=== PATIENT | male | born 1980 | race Caucasian/White ===

== ENCOUNTER 2017-03-23 15:50 | Inpatient (IN) ==
[2017-03-23] MEDS ORDERED: Piperacillin/Tazobactam 3.375 GM in D5% in Water (Mini-Bag+) 100 ML IVPB ONE (16:33)
[2017-03-23] MEDS ORDERED: Vancomycin 1,000 MG in D5% in Water 250 ML IVPB ONE (16:33)
--- NOTE | 2017-03-23 16:34 | Emergency Department Note ---
Disposition Clinical Impression: Puncture wound of plantar aspect of left foot Qualifiers: Encounter type: initial encounter Qualified Code(s): S91.332A - Puncture wound without foreign body, left foot, initial encounter Disposition: Admitted As Inpatient Condition: Good Referrals: NO,PCP [Primary Care Provider] - Forms: ED Satisfaction Letter Time of Disposition: 20:36 Skin/Abscess/FB HPI Chief complaint: ED Skin/Abscess/Foreign Body Stated complaint: L foot pain/swelling Time Seen by Provider: 03/23/17 16:21 Source: patient Mode of arrival: ambulatory Limitations: no limitations Nursing Notes Reviewed: Yes Vital Signs Reviewed: Yes HPI Narrative: 36-year-old male pack per day smoker and history of latent TB which was successfully treated presents with worsening left foot pain and swelling. Reports 3 days ago patient tripped and stepped on a rake that punctured his left foot. He was seen and evaluated in the ED. Patient was placed on outpatient antibiotics Augmentin and Levaquin and follow up with Dr. Sanon concrete block maker. Patient continues to have increased pain and swelling. Pain radiates up the leg. He denies any fevers at home. Denies any cough difficulty breathing, nausea or vomiting. Patient was given tetanus shot on prior evaluation. Previous Rx's Medication Instructions Recorded Amoxicillin/Clavulanate [Augmentin] 875 mg PO BIDWM #10 tablet 03/21/17 HYDROcodone/Acet 5/325 mg [[place]bler 1 - 2 tab PO Q6H PRN #10 tab 03/21/17 5-325 mg] Ibuprofen [Motrin] 600 mg PO Q8HR PRN #20 tab 03/21/17 Lactobacillus Combo No.10 1 each PO DAILY #30 capsule 03/21/17 [Probiotic] Levofloxacin [Levaquin] 750 mg PO DAILY #5 tablet 03/21/17 Allergies Allergy/AdvReac Type Severity Reaction Status Date / Time No Known Allergies Allergy Verified 03/21/17 16:17 All systems ED: reviewed and negative except as stated. Constitutional: Denies: fever, chills Cardiovascular: Denies: chest pain Respiratory: Denies: cough, dyspnea Gastrointestinal: Denies: abdominal pain, nausea, vomiting Genitourinary: Denies: urgency, dysuria Musculoskeletal: Reports: back pain, joint swelling, arthralgia Integumentary: Denies: rash, abrasion Neurological: Denies: headache Past Medical History - Past Medical History Attestation: Yes The following information was validated with the patient. Source: patient Medical history: Reports: hypertension, other Psychiatric history: Reports: no psych history - Social History Smoking Status: Current every day smoker Smokeless Tobacco Status: No Alcohol use: Reports: none Drug use: Reports: none Physical Exam - General Limitations: no limitations General appearance: alert, in distress (Appears uncomfortable and unable to place any pressure on his foot) - Chest Chest inspection: Present: normal inspection, symmetric chest wall rise - Respiratory Respiratory exam: Present: normal lung sounds bilaterally. Absent: respiratory distress, wheezes - Cardiovascular Cardiovascular exam: Present: regular rate, normal rhythm, normal heart sounds - Abdominal Exam Abdominal exam: Present: soft, Non-Tender, normal bowel sounds. Absent: tenderness, distention, guarding, rebound, rigidity - Expanded Lower Extremity Exam Lower leg exam: Present: other (soft compartment) Ankle exam: Present: swelling. Absent: crepitus Foot/toe exam: Present: tenderness, swelling, erythema, puncture wound (plantar aspect of left foot), other (Pain with passive range of motion to left foot). Absent: deformity, crepitus, dislocation, foreign body, tenderness at base of 5th metatarsal 1 - ERYTHEMA AND EDEMA 1 - ~2.0 cm laceration/puncture, no active bleeding Neurovascular/Tendon exam: Present: normal capillary refill. Absent: pulse deficit Gait: not tested/not observed, unable to bear weight - Neurological Exam Neurological exam: Present: alert, oriented X3 - Psychiatric Psychiatric exam: Present: normal affect, normal mood - Skin Skin exam: Present: warm, dry, intact, normal color, erythema (left foot dorsal and plantar) Course Course Narrative: 36-year-old male presents with left foot puncture wound. He has failed outpatient antibiotics. Increased swelling and erythema. Patient has pain with passive range of motion to the ankle and foot. Left lower leg compartment is soft and not tense. Good capillary refill. Neurovascularly intact. Tetanus was updated on Friday on initial evaluation. Will start on empiric antibiotics vancomycin and Zosyn. Morphine for pain here. Will repeat image his left foot. Patient will need admission and possible washout. - Reevaluation(s) Reevaluation #1: Patient remains afebrile with normal vital signs. His labs are unremarkable. X -ray of his left foot reveals resolution of gas in the soft tissue. Patient will need admission for washout. Impression left foot puncture wound to the midfoot. Time: 20:00 - Consultations Consultation #1: Spoke to Dr. Sanon podiatrists recommends edition of clindamycin to the vancomycin and Zosyn. Patient will be scheduled for a washout tomorrow. Recommend to admit to hospitalist. Time: 20:09 Consultation #2: Spoke with on-call hospitalist christian Mantilla to admit for left foot puncture wound of planter aspect. No further orders at this time Time: 20:36 Vital Signs Temperature 98.2 F 03/23/17 16:11 Pulse Rate 97 03/23/17 16:11 Respiratory Rate 18 03/23/17 16:11 Blood Pressure 138/90 03/23/17 16:11 O2 Sat by Pulse Oximetry 96 03/23/17 16:11 Temperature 98.2 F 03/23/17 16:11 Pulse Rate 96 03/23/17 19:40 Respiratory Rate 18 03/23/17 19:40 Blood Pressure 112/70 03/23/17 19:40 O2 Sat by Pulse Oximetry 95 03/23/17 19:40 Oxygen Delivery Oxygen Delivery Room Air Skin/Abscess/Foreign Body - Differential Diagnosis Likely: abscess of skin or subcutaneous tissue - Medical Records Medical records reviewed: Yes I reviewed the patient's medical records. - Lab Data Lab results reviewed: Yes I reviewed the patient's lab results. Result diagrams: 03/23/17 18:55 03/23/17 18:55 Lab Results 03/23/17 03/23/17 Range/Units 18:55 18:55 WBC 10.6 (4.3-11.1) K/mcL RBC 4.32 (4.19-5.50) M/mcL Hgb 13.4 (12.9-16.9) g/dL Hct 39.3 (37.5-50.1) % MCV 91.0 (83.0-100.0) fL MCH 31.0 (28.0-33.3) pg MCHC 34.1 (31.6-35.5) g/dL RDW 12.3 (11.5-14.5) % Plt Count 208 (140-400) K/mcL MPV 9.7 (9.4-12.4) fL Immature Gran % 0.5 (0-4) % Seg Neutrophils % 68.2 % Lymphocytes % 22.2 % Monocytes % 6.6 % Eosinophils % 2.2 % Basophils % 0.3 % Neutrophils # 7.2 (1.6-8.9) K/mcL Lymphocytes # 2.4 (0.6-4.6) K/mcL Monocytes # 0.7 (0.0-1.3) K/mcL Eosinophils # 0.2 (0.0-0.6) K/mcL Basophils # 0.0 (0.0-0.2) K/mcL Sodium 144 (136-145) mEq/L Potassium 3.8 (3.5-4.5) mEq/L Chloride 106 (98-109) mEq/L Carbon Dioxide 28 (19-29) mEq/L BUN 20 (8-26) mg/dL Creatinine 1.05 (0.72-1.25) mg/dL Est GFR ( Amer) > 60 (> 60) Est GFR (Non-Af Amer) > 60 (> 60) BUN/Creatinine Ratio 19 (6-26) Glucose 90 (70-99) mg/dL Calculated Osmolality 300 (280-300) Calcium 9.4 (8.6-10.8) mg/dL - Radiology Data Radiology results reviewed: Yes I reviewed the patient's radiology results. Foot X-Ray 03/23/17 16:33 IMPRESSION: No acute osseous abnormality of the left foot. Mild soft tissue swelling. Resolution of soft tissue gas and no radiopaque foreign body. D/ / Richar Rice MD / Richar Rice MD Interpreting Provider: Richar Rice MD
[2017-03-23] MEDS ORDERED: *HR* Morphine 2 MG/ML SYRINGE IVP ONE (18:47)
[2017-03-23 19:01] LABS: Basophils % 0.3 %; Eosinophils # 0.2 K/mcL (0.0-0.6); Eosinophils % 2.2 %; Hematocrit 39.3 % (37.5-50.1); Hemoglobin 13.4 g/dL (12.9-16.9); Immature Granulocytes % 0.5 % (0-4); Lymphocytes # 2.4 K/mcL (0.6-4.6); Lymphocytes % 22.2 %; Mean Corpuscular HGB Conc 34.1 g/dL (31.6-35.5); Mean Platelet Volume 9.7 fL (9.4-12.4); Monocytes # 0.7 K/mcL (0.0-1.3); Monocytes % 6.6 %; Neutrophils # 7.2 K/mcL (1.6-8.9); Platelet Count 208 K/mcL (140-400); Red Blood Count 4.32 M/mcL (4.19-5.50); Red Cell Distribution Width 12.3 % (11.5-14.5); Segmented Neutrophils % 68.2 %
[2017-03-23 19:13] LABS: BUN/Creatinine Ratio 19 (6-26); Blood Urea Nitrogen 20 mg/dL (8-26); Calcium 9.4 mg/dL (8.6-10.8); Carbon Dioxide 28 mEq/L (19-29); Chloride 106 mEq/L (98-109); Glucose 90 mg/dL (70-99); Osmolality,Calculated 300 (280-300); Potassium 3.8 mEq/L (3.5-4.5); Sodium 144 mEq/L (136-145); eGFR For African Americans > 60 (> 60); eGFR For Non-African Americans > 60 (> 60)
[2017-03-23] MEDS ORDERED: *HR* HYDROmorphone 2 MG/ML SYRINGE IVP ONE (19:40)
[2017-03-23] MEDS ORDERED: *HR* HYDROmorphone 2 MG/ML SYRINGE ONE (19:57)
[2017-03-23] MEDS ORDERED: Clindamycin 900 MG/50 ML 900 MG/50 ML IV.SOLN IVPB ONE (20:05)
--- NOTE | 2017-03-23 22:50 | Internal Med History&Physical ---
Date of Encounter: 03/23/17 Time of Encounter: 22:50 Assessment and Plan (1) Left foot infection Current visit: Yes Status: Acute Secondary to puncture wound. Continue with vancomycin and zosyn. Podiatry consultation (2) Puncture wound of plantar aspect of left foot Current visit: Yes Status: Acute Pt has tetanus shot. Continue antibiotics. Podiatry consultation Qualifiers: Encounter type: initial encounter Qualified Code(s): S91.332A - Puncture wound without foreign body, left foot, initial encounter (3) Pain in joint of pelvic region Current visit: Yes Status: Acute X-Ray pelvis ordered (4) Nicotine dependence Current visit: Yes Status: Chronic Nicotine patch prn Qualifiers: Nicotine product type: cigarettes Substance use status: unspecified nicotine-induced disorder Qualified Code(s): F17.219 - Nicotine dependence, cigarettes, with unspecified nicotine-induced disorders Internal Medicine - H&P: HPI Chief complaint: Left foot pain Admitted From: Emergency Dept Plans for Post Hospital Care: Home History of present illness: Mr. Stoll is a 36 year old male With history of latent TB which was successfully treated who stepped on a rake that punctured his left foot 2 days ago. He was seen in the ER and was discharged on oral antibiotics. He re- presents to the ER, with worsening left foot pain (8/10, worse on weight bearing , pain goes upto the knee) and swelling. He denies fever, chills, chest pain, shortness of breath, abdominal pain, urinary or bowel problems. He was evaluated in the emergency department and x-ray was negative for osseous abnormalities. Pt was upto date with tetanus shot. ER physician discussed with carton maker Dr Sanon and pt was given vancomycin, clindamycin and zosyn. Pt is admitted to the hospitalist service for further management. Pt reports that he had a fall 2 days ago and landed on the sacral area, and reports pain when he is lying on the left side. Past Med Surg Social Fam HX - Past Medical History Medical history: hypertension, other Psychiatric history: no psych history - Social History Smoking Status: Current every day smoker Smokeless Tobacco Status: No Alcohol use: none Drug use: none - Additional Family History Additional family history: Family history reviewed and noncontributory to current admission Internal Medicine - H&P: Meds Amoxicillin/Clavulanate [Augmentin] 875 mg PO BIDWM #10 tablet 03/21/17 [Rx] Lactobacillus Combo No.10 [Probiotic] 1 each PO DAILY #30 capsule 03/21/17 [Rx] Levofloxacin [Levaquin] 750 mg PO DAILY #5 tablet 03/21/17 [Rx] Allergies No Known Allergies Allergy (Verified 03/21/17 16:17) All Systems PM: A 10-system review of systems was performed and is negative for pertinent findings except as documented above in the HPI. - Constitutional Vitals: Temp Pulse Resp BP Pulse Ox 98.4 F 86 15 116/50 94 03/23/17 21:56 03/23/17 21:56 03/23/17 21:56 03/23/17 21:56 03/23/17 21:56 Exam: General: Not in acute distress at the time of my evaluation HEENT: Oral mucosa is moist. No conjunctival palor or scleral icterus Neck: No obvious neck swellings Lungs: Clear to auscultation Cardiac: Regular rate and rhythm. No significant murmurs Abdomen: Soft, non tender. Bowel sounds present Genitourinary: No saenz catheter Neurological: Alert and oriented. No gross localizing deficits Psych: Not aggressive or agitated Extremities: There is significant swelling of the left foot, with local warmth and tenderness. There is puncture wound on the left forefoot. Skin: No generalized rash Internal Med - H&P Results - Labs CBC & Chem 7: 03/23/17 18:55 03/23/17 18:55 - Impressions ITS Impressions Foot X-Ray 03/23/17 16:33 IMPRESSION: No acute osseous abnormality of the left foot. Mild soft tissue swelling. Resolution of soft tissue gas and no radiopaque foreign body. D/ / Richar Rice MD / Richar Rice MD Interpreting Provider: Richar Rice MD
[2017-03-23] MEDS ORDERED: Naloxone 0.4 MG/ML INJ IVP PRN (22:51)
[2017-03-23] MEDS ORDERED: *HR* HYDROmorphone (PF) 1 MG/ML SYRINGE IVP PRN (22:53)
[2017-03-23] MEDS ORDERED: Acetaminophen 325 MG TABLET PO PRN (22:53)
[2017-03-23] MEDS ORDERED: Vancomycin 1,500 MG in D5% in Water 250 ML IVPB SCH (23:00)
[2017-03-24] MEDS: *HR* Morphine 2 MG/ML SYRINGE IVP PRN ×2 (01:23→03:53)
[2017-03-24] MEDS: Piperacillin/Tazobactam 3.375 GM in D5% in Water (Mini-Bag+) 100 ML IVPB SCH ×2 (02:00→08:52)
[2017-03-24] MEDS ORDERED: Vancomycin 1,500 MG in D5% in Water 250 ML IVPB SCH (04:00)
[2017-03-24] MEDS: Lactobacillus 1 EACH CAP.SPRINK PO SCH ×2 (08:51→08:58)
[2017-03-24] MEDS ORDERED: Ketorolac 30 MG/ML VIAL IVP PRN ×2 (10:21→12:29)
[2017-03-24] MEDS ORDERED: Ketorolac 15 MG/ML VIAL IVP PRN ×2 (10:21→12:30)
--- NOTE | 2017-03-24 10:26 | Internal Med Progress Note ---
Date of Encounter: 03/24/17 Time of Encounter: 10:23 - Assessment and plan (1) Puncture wound of plantar aspect of left foot Current Visit: Yes Status: Acute Assessment and plan: Failed outpatient therapy with Augmentin and Levaquin Continue Zosyn and vancomycin day 2 Podiatry consulted to perform I&D later today Obtain cultures Toradol and Dilaudid for pain IV fluids Qualifiers: Encounter type: initial encounter Qualified Code(s): S91.332A - Puncture wound without foreign body, left foot, initial encounter (2) Left foot infection Current Visit: Yes Status: Acute (3) Nicotine dependence Current Visit: Yes Status: Chronic Assessment and plan: Smoking cessation counseling given for 5 minutes. Nicotine patch offered and rejected Qualifiers: Nicotine product type: cigarettes Substance use status: unspecified nicotine-induced disorder Qualified Code(s): F17.219 - Nicotine dependence, cigarettes, with unspecified nicotine-induced disorders (4) Lumbar pain Current Visit: Yes Status: Acute Assessment and plan: Obtain x-rays Qualifiers: Chronicity: acute Back pain laterality: midline Sciatica presence: without sciatica Qualified Code(s): M54.5 - Low back pain (5) Latent tuberculosis Current Visit: Yes Status: Acute (6) COPD (chronic obstructive pulmonary disease) Current Visit: Yes Status: Acute Assessment and plan: Possible mild exacerbation, The patient has never been officially diagnosed. Start DuoNeb's and consider steroids if not improving Qualifiers: COPD type: unspecified COPD Qualified Code(s): J44.9 - Chronic obstructive pulmonary disease, unspecified - Subjective Interval history: Complaining of severe pain and inflammation on the left foot, 10 out of 10 in intensity. Denies any chest pain, mild shortness of breath, dry cough, denies any fevers, has been having chills, no diarrhea or dysuria. Complains of severe lumbar pain - Constitutional Vitals: Temp Pulse Resp BP Pulse Ox 97.6 F 65 15 128/80 96 03/24/17 08:08 03/24/17 08:08 03/24/17 08:08 03/24/17 08:08 03/24/17 08:08 General appearance: Present: A&O X 3 - Head Head exam: Present: atraumatic, normocephalic - Eye Eye exam: Present: PERRL, conjuntiva pink, sclera anicteric Pupils: Present: PERRL - Neck Neck exam general surgery: Present: supple, trachea midline. Absent: lymphadenopathy - Respiratory Respiratory exam: Present: CTAB. Absent: accessory muscle use, rales, rhonchi, wheezes - Cardiovascular Cardiovascular exam: Present: RRR, +S1, +S2. Absent: diastolic murmur, gallop, rubs, systolic murmur - GI/Abdominal GI/Abdominal exam: Present: normal bowel sounds, soft, no peritoneal signs. Absent: distended, tenderness - Extremities Exam Extremities exam: Present: warm, radial pulses palpable and symetrical. Absent : calf tenderness, cyanotic, pedal edema Additional comments: Left foot is extremely edematous, mild erythema, puncture wound on the external anterior sole with mild erythema Tenderness in the lumbar area - Neurological Exam Neurological exam: Present: CN II-XII intact, oriented X3, no focal deficits. Absent: pronater drift, facial droop, speech deficit - Skin Skin exam: Present: dry, intact Internal Medicine: Result - Labs CBC & Chem 7: 03/23/17 18:55 03/23/17 18:55 - Impressions Impressions Pelvis X-Ray 03/24/17 09:08 IMPRESSION: Unremarkable pelvis. D/ / Ramo Fry MD / Ramo Fry MD Interpreting Provider: Ramo Fry MD Consult Discharge Plan - Plan Referrals: NO,PCP [Primary Care Provider] -
[2017-03-24] MEDS ORDERED: Ipratropium/Albuterol Neb 3 ML IH SCH (10:30)
[2017-03-24 12:21] VITALS: BP 138/82
[2017-03-24] MEDS: *HR* HYDROmorphone (PF) 1 MG/ML SYRINGE IVP PRN ×2 (12:25→14:58)
--- NOTE | 2017-03-24 12:51 | Podiatry Consult Note ---
Date of Encounter: 03/24/17 Time of Encounter: 12:48 Assessment and Plan (1) Puncture wound of plantar aspect of left foot Current visit: Yes Status: Acute Assessment: #1 patient status post puncture wound unresponsive to outpatient therapy #2 likely localized cellulitis possible abscess #3 comorbidities including history of narcotic addiction Plan: #1 patient will need formal debridement incision and drainage cultures #2 we will let cultures guide antibiotic therapy until then empiric antibiotics will suffice Discussed risks versus benefits as well as alternatives to surgical remission with the patient in detail. Risks include but are not limited to less than toe toes foot leg life DVT blood clots. Need for further surgical intervention. Failure procedure produce desired results chronic pain bleeding. Patient voiced comprehension patient had ample opportunity to ask questions about planned procedure and times of anesthetic and complete employed. Those questions are answered to his satisfaction. We will proceed to the operating room as soon as feasible. Patient will be kept nothing by mouth as of 0800. Qualifiers: Encounter type: initial encounter Qualified Code(s): S91.332A - Puncture wound without foreign body, left foot, initial encounter History of Present Illness Chief complaint: Puncture wound cellulitis abscess left foot HPI: Mr. Stoll is a 36 year old male who stepped on a rake approximately 72 hours ago was seen and treated appropriately in the ED with antibiotic therapy and local wound care. Patient then 48 hours presented to the ED with increased swelling and redness of his left foot. He is now admitted for intravenous antibiotics and incision and drainage and irrigation of wound. Patient does not complain of nausea vomiting fever chills chest pain shortness of breath. Patient does complain of back pain as well as foot pain. Past Med Surg Social Fam HX - Past Medical History Medical history: hypertension, other Psychiatric history: no psych history - Social History Smoking Status: Current every day smoker Smokeless Tobacco Status: No Alcohol use: none Drug use: none Medications and Allergies Amoxicillin/Clavulanate [Augmentin] 875 mg PO BIDWM #10 tablet 03/21/17 [Rx] Lactobacillus Combo No.10 [Probiotic] 1 each PO DAILY #30 capsule 03/21/17 [Rx] Levofloxacin [Levaquin] 750 mg PO DAILY #5 tablet 03/21/17 [Rx] Allergies No Known Allergies Allergy (Verified 03/21/17 16:17) All Systems Reviewed: A 10-system review of systems was performed and is negative for pertinent findings except as documented above in the HPI. Physical Exam - Constitutional Vitals: Temp Pulse Resp BP Pulse Ox 97.5 F L 62 15 138/82 97 03/24/17 12:20 03/24/17 12:20 03/24/17 12:20 03/24/17 12:20 03/24/17 12:20 General appearance: average body habitus, mild distress - Extremities Exam Extremities exam: Present: normal capillary refill - Expanded Lower Extremities Exam Foot/Toe exam: Present: puncture wound, swelling, tenderness (Patient will global edema of the left forefoot. We see localized erythema and cellulitis.) Gait: Present: not tested/not observed - Skin Additional comments: We observe a puncture one plantar aspect of the left forefoot between metatarsals #3 and 4 with tenting on the dorsal aspect of the foot Results - Labs Result Diagrams: 03/23/17 18:55 03/23/17 18:55 Labs: All other labs normal. Consult Discharge Plan - Plan Referrals: NO,PCP [Primary Care Provider] -
[2017-03-24] MEDS ORDERED: Aminoglycoside Consult 1 EACH MC ONE (15:29)
--- NOTE | 2017-03-24 16:01 | Discharge Summary ---
Date of Encounter: 03/24/17 Time of Encounter: 15:58 - Discharge Diagnosis (1) Puncture wound of plantar aspect of left foot Priority: Primary Status: Acute Qualifiers: Encounter type: initial encounter Qualified Code(s): S91.332A - Puncture wound without foreign body, left foot, initial encounter (2) Left foot infection Priority: Primary Status: Acute (3) Nicotine dependence Priority: Secondary Status: Chronic Qualifiers: Nicotine product type: cigarettes Substance use status: unspecified nicotine-induced disorder Qualified Code(s): F17.219 - Nicotine dependence, cigarettes, with unspecified nicotine-induced disorders (4) Lumbar pain Priority: Secondary Status: Acute Qualifiers: Chronicity: acute Back pain laterality: midline Sciatica presence: without sciatica Qualified Code(s): M54.5 - Low back pain (5) Latent tuberculosis Priority: Secondary Status: Acute (6) COPD (chronic obstructive pulmonary disease) Priority: Secondary Status: Acute Qualifiers: COPD type: unspecified COPD Qualified Code(s): J44.9 - Chronic obstructive pulmonary disease, unspecified - Discharge Medications Home Medications: Amoxicillin/Clavulanate [Augmentin] 875 mg PO BIDWM #10 tablet 03/21/17 [Rx] Levofloxacin [Levaquin] 750 mg PO DAILY #5 tablet 03/21/17 [Rx] Buprenorphine HCl/Naloxone HCl [Buprenorphin-Naloxon 8-2 mg Sl] 1 tab SL BID [History] Lactobacillus Combo No.10 [Probiotic] 1 cap PO DAILY 03/24/17 [History] Allergies/Adverse Reactions: Allergies No Known Allergies Allergy (Verified 03/21/17 16:17) Date of admission: 03/23/17 22:51 Primary care physician: PCP NO Consults: 03/24/17 05:08 Consult to Podiatry [CONS] Routine Consulting Provider: Podiatry [facility] Reason for Consult: Left foot infection Call Completed: No - Patient Status Disposition: Left Against Medical Advice Condition: Fair - Discharge Instructions Follow Up With: THAIS,PCP [Primary Care Provider] - Hospital course: Mr. Stoll is a 36 year old male With history of latent TB which was successfully treated who stepped on a rake that punctured his left foot 2 days ago. He was seen in the ER and was discharged on oral antibiotics. He re- presented to the ER, with worsening left foot pain (8/10, worse on weight bearing, pain goes upto the knee) and swelling. He denies fever, chills, chest pain, shortness of breath, abdominal pain, urinary or bowel problems. He was evaluated in the emergency department and x-ray was negative for osseous abnormalities. Pt was upto date with tetanus shot. ER physician discussed with extracting machine operator Dr Sanon and pt was given vancomycin, clindamycin and zosyn. Pt was admitted to the hospitalist service for further management. By the time I examined him, he was complaining of back pain, lumbar spine x-ray did not show any acute fracture. The patient was evaluated by the podiatry service and was scheduled to have draining of a possible abscess on his foot. I was made aware by his nurse that she mentioned that he wanted to leave AGAINST MEDICAL ADVICE, and was just notified that the patient was not found in the room when the infectious diseases nurse practitioner went into the room to evaluate him. Later today the patient was informed about the plan and the severity of the infection which did not respond to outpatient therapy with Levaquin and Augmentin - Time Spent with Patient Total time spent providing and/or coordinating discharge services: Less than 30 minutes - Constitutional Vitals: Temp Pulse Resp BP Pulse Ox 97.5 F L 62 15 138/82 97 03/24/17 12:20 03/24/17 12:20 03/24/17 12:20 03/24/17 12:20 03/24/17 12:20 General appearance: Present: A&O X 3 Exam: General appearance: Present: A&O X 3 - Head Head exam: Present: atraumatic, normocephalic - Eye Eye exam: Present: PERRL, conjuntiva pink, sclera anicteric Pupils: Present: PERRL - Neck Neck exam general surgery: Present: supple, trachea midline. Absent: lymphadenopathy - Respiratory Respiratory exam: Present: CTAB. Absent: accessory muscle use, rales, rhonchi, wheezes - Cardiovascular Cardiovascular exam: Present: RRR, +S1, +S2. Absent: diastolic murmur, gallop, rubs, systolic murmur - GI/Abdominal GI/Abdominal exam: Present: normal bowel sounds, soft, no peritoneal signs. Absent: distended, tenderness - Extremities Exam Extremities exam: Present: warm, radial pulses palpable and symetrical. Absent : calf tenderness, cyanotic, pedal edema Additional comments: Left foot is extremely edematous, mild erythema, puncture wound on the external anterior sole with mild erythema Tenderness in the lumbar area
[2017-03-24] MEDS ORDERED: *HR* Heparin 5,000 UNIT/ML VIAL SQ SCH (18:00)
== END 2017-03-24 15:30 | disposition left against medical advice (07) | DRG 383 ==
LOC: 3ANU 15:50 → EMEROO 15:50 → 3ANU 21:05
PROVIDERS: ADMIT Internal Medicine; ATTEND Internal Medicine